=== PATIENT | male | born 1945 | race Caucasian/White ===

== ENCOUNTER 2016-09-06 13:27 | Outpatient (CLI) | payer MEDICARE ==
[2016-09-06 14:03] LABS: ALT (SGPT) 18 U/L (0-55); AST (SGOT) 15 U/L (5-34); Albumin 4.3 g/dL (3.4-4.8); Alkaline Phosphatase 57 U/L (40-150); Bilirubin, Direct 0.2 mg/dL (0.1-0.3); Bilirubin, Total 0.7 mg/dL (0.2-1.2); Cardiac Risk 5.9 (Less than 4.5); Cholesterol 234 mg/dL (< 200 Desired); HDL Cholesterol 40 mg/dL (>60 Neg Risk); LDL Cholesterol, Calculated 143 mg/dL; Protein, Total 7.2 g/dL (5.8-8.1); Triglycerides 255 mg/dL (Less than 150)
== END 2016-09-06 13:28 | disposition home or self-care (01) ==
LOC: BURLAB 13:27
PROVIDERS: ATTEND Family Medicine
DX: E78.5 Hyperlipidemia, unspecified (principal); E78.1 Pure hyperglyceridemia
CPT/HCPCS: 36415; 80061; 80076

== ENCOUNTER 2016-12-12 13:27 | Outpatient (CLI) | payer MEDICARE ==
[2016-12-12 17:08] LABS: Anion Gap 15 mmol/L (10-20); BUN (Urea Nitrogen) 16 mg/dL (8.4-25.7); Calc. Creatinine Clearance 0 mL/min (70-130); Carbon Dioxide 26 mmol/L (23-31); Chloride 105 mmol/L (98-107); Estimated GFR-MDRD 86; Glucose 112 mg/dL (83-110); Potassium 4.3 mmol/L (3.5-5.1); Sodium 142 mmol/L (136-145)
== END 2016-12-12 13:28 ==
LOC: LABLEX 13:27
PROVIDERS: ATTEND Family Medicine
DX: Z01.818 Encounter for other preprocedural examination (principal)
CPT/HCPCS: 80048

== ENCOUNTER 2017-09-30 08:17 | Emergency (ER) | payer MEDICARE ==
[2017-09-30] MEDS ORDERED: Ondansetron ODT 4 MG TAB ONE (08:36)
[2017-09-30] MEDS ORDERED: diphenhydrAMINE 50 MG/ML VIAL ONE (08:36)
[2017-09-30 09:07] LABS: #Basophils 0.1 thou/uL (0.0-0.2); #Eosinphils 0.1 thou/uL (0.0-0.7); #Lymphocytes 1.2 thou/uL (1.20-3.40); #Monocytes 0.9 thou/uL (0.11-0.59); #Neutrophils 11.5 thou/uL (1.40-6.50); %Basophils 0.4 % (0.0-1.0); %Eosinophils 0.5 % (0.0-10.0); %Lymphocytes 8.8 % (21.0-51.0); %Monocytes 6.6 % (0.0-10.0); %Neutrophils 83.7 % (42.0-75.0); Hemoglobin 15.8 g/dL (14.0-18.0); Mean Corpuscular HGB CONC 34.2 g/dL (32.0-36.0); Mean Corpuscular Hemoglobin 30.1 pg (27.0-31.0); Mean Platelet Volume 6.3 fL (7.4-10.4); Platelet Count 294 thou/uL (130-400); RBC Distribution Width 11.9 % (11.5-14.5); Red Blood Cell (RBC) Count 5.27 mill/uL (4.70-6.10); White Blood Cell (WBC) Count 13.7 thou/uL (4.8-10.8)
[2017-09-30 09:25] LABS: ALT (SGPT) 17 U/L (8-55); AST (SGOT) 14 U/L (5-34); Albumin 4.6 g/dL (3.4-4.8); Alkaline Phosphatase 69 U/L (40-150); Anion Gap 19 mmol/L (10-20); BUN (Urea Nitrogen) 16 mg/dL (8.4-25.7); Calc. Creatinine Clearance 0 mL/min (70-130); Calcium 10.1 mg/dL (7.8-10.44); Carbon Dioxide 24 mmol/L (23-31); Chloride 101 mmol/L (98-107); Estimated GFR-MDRD 76; Globulin 3.2 g/dL (2.4-3.5); Glucose 152 mg/dL (83-110); Lipase 16 U/L (8-78); Potassium 3.8 mmol/L (3.5-5.1); Protein, Total 7.8 g/dL (5.8-8.1); Sodium 140 mmol/L (136-145)
--- NOTE | 2017-09-30 11:24 | RAD ---
ACUTE ABDOMEN SERIES: Date: 09/30/17 Comparison is made with the 02/26/16 study done at [facility]. FINDINGS: Multiple dilated loops of small bowel are noted, mostly proximal to mid small bowel. Some of the loop s are as wide as 4-5 cm. Findings suggest the possibility of a small bowel obstruction. An air fluid level is seen in the stomach. The colon is note distended. Hardware is seen in the lower lumbar spine from extensive back surgery. The chest film in the series shows the heart size is stable. The aorta is tortuous as usual. The lung s are clear. No free air is seen beneath the diaphragm. IMPRESSION: Suspicious for small bowel obstruction. Findings discussed with Dr. Gonzalez at 0920 hours. CODE CR. POS: HOME
== END 2017-09-30 09:58 | disposition short-term general hospital (02) ==
LOC: BURERS 08:17
DX: K56.609 Unspecified intestinal obstruction, unspecified as to partial versus complete obstruction (principal); R11.2 Nausea with vomiting, unspecified; E11.9 Type 2 diabetes mellitus without complications; I10 Essential (primary) hypertension; F41.9 Anxiety disorder, unspecified; Z79.84 Long term (current) use of oral hypoglycemic drugs; Z79.899 Other long term (current) drug therapy
CPT/HCPCS: 74022; 80053; 83690; 85025; 93005; 96372; J1200; Q0162

== ENCOUNTER 2018-09-27 04:58 | Emergency (ER) | payer MEDICARE ==
[2018-09-27] MEDS ORDERED: Fentanyl 100 MCG/2 ML VIAL ONE (05:32)
[2018-09-27 05:38] LABS: #Basophils 0.1 thou/uL (0.0-0.2); #Eosinphils 0.2 thou/uL (0.0-0.7); #Monocytes 0.6 thou/uL (0.11-0.59); #Neutrophils 5.7 thou/uL (1.40-6.50); %Basophils 0.7 % (0.0-1.0); %Eosinophils 2.3 % (0.0-10.0); %Lymphocytes 23.7 % (21.0-51.0); %Monocytes 6.9 % (0.0-10.0); %Neutrophils 66.4 % (42.0-75.0); Hemoglobin 13.9 g/dL (14.0-18.0); Mean Corpuscular HGB CONC 33.2 g/dL (32.0-36.0); Mean Corpuscular Hemoglobin 30.5 pg (27.0-31.0); Mean Corpuscular Volume 91.8 fL (78.0-98.0); Mean Platelet Volume 5.9 fL (7.4-10.4); Platelet Count 252 thou/uL (130-400); RBC Distribution Width 12.3 % (11.5-14.5); Red Blood Cell (RBC) Count 4.55 mill/uL (4.70-6.10); White Blood Cell (WBC) Count 8.5 thou/uL (4.8-10.8)
[2018-09-27 05:48] LABS: ALT (SGPT) 18 U/L (8-55); AST (SGOT) 14 U/L (5-34); Albumin 4.4 g/dL (3.4-4.8); Alkaline Phosphatase 64 U/L (40-150); Anion Gap 13 mmol/L (10-20); BUN (Urea Nitrogen) 23 mg/dL (8.4-25.7); Bilirubin, Total 0.4 mg/dL (0.2-1.2); Calc. Creatinine Clearance 0 mL/min (70-130); Calcium 9.6 mg/dL (7.8-10.44); Carbon Dioxide 30 mmol/L (23-31); Chloride 102 mmol/L (98-107); Estimated GFR-MDRD 71; Glucose 121 mg/dL (83-110); Lipase 33 U/L (8-78); Potassium 3.9 mmol/L (3.5-5.1); Protein, Total 7.4 g/dL (5.8-8.1); Sodium 141 mmol/L (136-145)
[2018-09-27] MEDS ORDERED: Morphine 4 MG/ML VIAL ONE (05:57)
[2018-09-27] MEDS ORDERED: Glycopyrrolate 0.2 MG/ML 5 ML SYRINGE SLOW IVP SCH (06:00)
[2018-09-27] MEDS ORDERED: Ondansetron PF 4 MG/2 ML Vial ONE (06:41)
[2018-09-27] MEDS ORDERED: Piperacillin/Tazobactam 4.5 GM VIAL ONE (06:42)
[2018-09-27] MEDS ORDERED: Sodium Chloride 0.9% 100 ML ONE (06:43)
--- NOTE | 2018-09-27 07:22 | CT ---
CT ABDOMEN AND PELVIS WITH CONTRAST: Date: 09/27/18 COMPARISON: 09/30/17. CLINICAL INDICATION: Abdominal pain. FINDINGS: There are mild patchy subpleural opacities of the imaged lung bases, grossly stable. This may relate to a component of chronic interstitial lung disease, although is incompletely evaluated on the basis of this exam. There is moderate distention of the gallbladder, which is a new finding from the prior exam, and there is a slight degree of pericholecystic fat stranding. Nodularity of the hepatic contou r is noted, which may be related to component of cirrhotic morphology. Spleen is unremarkable. No per ipancreatic inflammation. Stable duodenal diverticulum adjacent to pancreatic head. Bowel is incomple tely evaluated without enteric contrast. There are colonic diverticula, most notable within the sigmo id colon. No free air. No portal vein gas. Moderate distention of the unopacified urinary bladder. Sc attered vascular disease is present. There are stable small, subcentimeter hypodensities of the right kidney, too small to definitively characterize. Evaluation of the kidneys reveals no evidence of hyd ronephrosis or suspicious renal lesion. Osseous degenerative change is present and there are postoper ative changes of the lumbosacral spine. Stable mild prominence of the prostate gland, 5.[address], with internal punctate calcification. No additional significant interval detrimental change iden tified. IMPRESSION: 1. Findings which suggest cholecystitis, although incompletely evaluated. Recommend follow-up gallbl adder ultrasound to further characterize. 2. Nodularity of the hepatic contour, which may be on the basis of cirrhotic morphology. 3. Colonic diverticulosis. 4. Additional details are as described above. POS: [facility]
== END 2018-09-27 07:11 | disposition home or self-care (01) ==
LOC: BURERS 04:58
DX: K81.0 Acute cholecystitis (principal); E11.9 Type 2 diabetes mellitus without complications; I10 Essential (primary) hypertension; Z79.1 Long term (current) use of non-steroidal anti-inflammatories (NSAID); Z79.899 Other long term (current) drug therapy; Z79.84 Long term (current) use of oral hypoglycemic drugs
CPT/HCPCS: 74177; 80053; 83690; 84484; 85025; 93005; 96361; 96374; 96375; 96376; J2270; J2405; J2543; J3010; J3490

== ENCOUNTER 2020-09-09 18:28 | Emergency (ER) | payer MEDICARE ==
[2020-09-09 19:25] LABS: #Basophils 0.1 thou/uL (0.0-0.2); #Eosinphils 0.2 thou/uL (0.0-0.7); #Lymphocytes 1.1 thou/uL (1.20-3.40); #Monocytes 0.8 thou/uL (0.11-0.59); #Neutrophils 5.6 thou/uL (1.40-6.50); %Basophils 0.8 % (0.0-1.0); %Eosinophils 2.4 % (0.0-10.0); %Monocytes 10.6 % (0.0-10.0); %Neutrophils 72.2 % (42.0-75.0); Mean Corpuscular Hemoglobin 31.2 pg (27.0-31.0); Mean Corpuscular Volume 94.4 fL (78.0-98.0); Mean Platelet Volume 6.4 fL (7.4-10.4); Platelet Count 206 thou/uL (130-400); Red Blood Cell (RBC) Count 4.48 mill/uL (4.70-6.10); White Blood Cell (WBC) Count 7.8 thou/uL (4.8-10.8)
[2020-09-09 19:41] LABS: ALT (SGPT) 27 U/L (8-55); AST (SGOT) 20 U/L (5-34); Alkaline Phosphatase 73 U/L (40-110); Anion Gap 17 mmol/L (10-20); BUN (Urea Nitrogen) 13 mg/dL (8.4-25.7); Bilirubin, Total 0.6 mg/dL (0.2-1.2); Calc. Creatinine Clearance 0 mL/min (70-130); Calcium 9.1 mg/dL (7.8-10.44); Carbon Dioxide 25 mmol/L (23-31); Chloride 102 mmol/L (98-107); Globulin 2.9 g/dL (2.4-3.5); Glucose 126 mg/dL (83-110); Lipase 29 U/L (8-78); Potassium 3.7 mmol/L (3.5-5.1); Protein, Total 6.9 g/dL (5.8-8.1); Sodium 140 mmol/L (136-145)
[2020-09-09 20:07] LABS: Bilirubin Negative (Negative); Blood, Urine Negative (Negative); Clarity Clear (Clear); Glucose, Urine (Dipstick) Negative (Negative); Ketone, Urine Trace mg/dL (Negative); Leukocyte Negative (Negative); Nitrite Negative (Negative); Protein, Urine (Dipstick) Negative (Neg-Trace); pH, Urine 8.5 (5.0-9.0)
[2020-09-10 01:24] LABS: SARS-CoV-2 PCR by NAA DETECTED (NotDetected)
== END 2020-09-09 21:01 | disposition home or self-care (01) ==
LOC: BURERS 18:28
DX: U07.1 COVID-19 (principal); Z79.899 Other long term (current) drug therapy; Z79.84 Long term (current) use of oral hypoglycemic drugs; Z79.891 Long term (current) use of opiate analgesic; E11.9 Type 2 diabetes mellitus without complications; I10 Essential (primary) hypertension; E78.00 Pure hypercholesterolemia, unspecified
CPT/HCPCS: 71045; 80053; 81003; 83605; 83690; 84484; 85025; 87804 ×2; 93005; U0003; U0005; 87635

== ENCOUNTER 2021-03-15 12:07 | Outpatient (CLI) | payer MEDICARE | END 2021-03-15 12:08 | disposition home or self-care (01) | LOC: BURRAD 12:07 | PROVIDERS: ATTEND Nurse Practitioner | DX: M79.672 Pain in left foot (principal) ==

== ENCOUNTER 2023-07-04 17:04 | Emergency (ER) | payer MEDICARE ==
[2023-07-04] MEDS ORDERED: Dexamethasone 10 MG/ML VIAL ONE (17:49)
[2023-07-04] MEDS ORDERED: Morphine 2 MG/ML VIAL ONE (17:50)
== END 2023-07-04 20:11 | disposition home or self-care (01) ==
LOC: BURERS 17:04
DX: M54.12 Radiculopathy, cervical region (principal); E11.9 Type 2 diabetes mellitus without complications; I10 Essential (primary) hypertension
CPT/HCPCS: 72050; 96372; J1100; J2272

== ENCOUNTER 2023-07-10 07:53 | Emergency (ER) | payer MEDICARE ==
[2023-07-10] MEDS ORDERED: Morphine 10 MG/ML VIAL ONE (08:32)
[2023-07-10] MEDS ORDERED: methylPREDNISolone Sod Succ 40 MG VIAL ONE (08:33)
== END 2023-07-10 09:35 | disposition home or self-care (01) ==
LOC: BURERS 07:53
DX: M54.12 Radiculopathy, cervical region (principal); E11.9 Type 2 diabetes mellitus without complications; I10 Essential (primary) hypertension
CPT/HCPCS: 96372; 99283; J2270; J2920

== ENCOUNTER 2023-10-05 12:07 | Emergency (ER) | payer MEDICARE ==
[2023-10-05 13:17] LABS: Influenza A by NAA Not Detected (NotDetected); Influenza B by NAA Not Detected (NotDetected); SARS-CoV-2 NAA Rapid Test DETECTED (NotDetected)
[2023-10-05 13:27] LABS: #Basophils 0.1 thou/uL (0.0-0.2); #Lymphocytes 0.5 thou/uL (1.20-3.40); #Monocytes 0.9 thou/uL (0.11-0.59); %Eosinophils 0.2 % (0.0-10.0); %Lymphocytes 5.6 % (21.0-51.0); %Monocytes 9.8 % (0.0-10.0); %Neutrophils 83.4 % (42.0-75.0); Hematocrit 39.4 % (42.0-52.0); Hemoglobin 12.8 g/dL (14.0-18.0); Mean Corpuscular HGB CONC 32.5 g/dL (32.0-36.0); Mean Corpuscular Hemoglobin 30.6 pg (27.0-31.0); Mean Corpuscular Volume 94.1 fl (78.0-98.0); Mean Platelet Volume 5.9 fL (7.4-10.4); Platelet Count 255 10x3/uL (130-400); RBC Distribution Width 11.7 % (11.5-14.5); Red Blood Cell (RBC) Count 4.19 mill/uL (4.70-6.10); White Blood Cell (WBC) Count 9.6 10x3/uL (4.8-10.8)
[2023-10-05 13:43] LABS: ALT (SGPT) 12 U/L (8-55); AST (SGOT) 12 U/L (5-34); Albumin 3.4 g/dL (3.4-4.8); Alkaline Phosphatase 60 U/L (40-110); Anion Gap 15 mmol/L (10-20); BUN (Urea Nitrogen) 10 mg/dL (8.4-25.7); Bilirubin, Total 0.4 mg/dL (0.2-1.2); Calc. Creatinine Clearance 0 mL/min (70-130); Calcium 8.9 mg/dL (7.8-10.44); Carbon Dioxide 26 mmol/L (23-31); Chloride 97 mmol/L (98-107); Estimated GFR 90; Glucose 114 mg/dL (83-110); Magnesium 1.6 mg/dL (1.6-2.6); Potassium 3.4 mmol/L (3.5-5.1); Protein, Total 6.4 g/dL (5.8-8.1); Sodium 135 mmol/L (136-145)
== END 2023-10-05 14:49 | disposition home or self-care (01) ==
LOC: BURERS 12:07
DX: U07.1 COVID-19 (principal); E11.9 Type 2 diabetes mellitus without complications; I10 Essential (primary) hypertension
CPT/HCPCS: 80053; 83735; 85025; 99283